=== PATIENT | female | born 1980 | race Caucasian/White ===

== ENCOUNTER 2017-01-09 05:19 | Day surgery (SDC) | payer BC ==
[~2017-01-09 05:19] MED LIST: CALCIUM 600 +1 EACH PO; CYMBALTA30 M1 PO; CYMBALTA60 M1 PO; DEXILANT60 MG PO; FIORICET TABLET1 TAB; H; IRON325 M3 PO; MULTIVITAMIN1 TAB PO; ORTHO TRI-7 DAYS X; PHENERGAN25 MG/SUPP; PRENATAL1 TAB; PROVENTIL HFA6.7 G1 INH; SINGULAIR10 M1 PO; SYMBICORT 16010.2 GM IH; SYMBICORT 80/10.2 GM; TRI-SPRINTEC1 TAB PO; XANAX1 M1 PO; XYZAL5 MG PO; ZYRTEC10 M7 PO
[2017-01-09] MEDS ORDERED: TOPAMAX100 M2 PO (06:05)
[2017-01-10] MEDS ORDERED: PERCOCET 5-3251 EACH PO (00:34)
== END 2017-01-10 09:40 ==
LOC: SHSA 05:19 → ORW 07:38 → PACU 08:20 → OBGF 09:25
PROC: 0UT94ZZ Resection of Uterus, Percutaneous Endoscopic Approach (ICD-10-PCS; principal; 2017-01-09)
PROC: 0UTC4ZZ Resection of Cervix, Percutaneous Endoscopic Approach (ICD-10-PCS; 2017-01-09)
PROC: 0UT14ZZ Resection of Left Ovary, Percutaneous Endoscopic Approach (ICD-10-PCS; 2017-01-09)
PROC: 0UT74ZZ Resection of Bilateral Fallopian Tubes, Percutaneous Endoscopic Approach (ICD-10-PCS; 2017-01-09)
PROC: 8E0W4CZ Robotic Assisted Procedure of Trunk Region, Percutaneous Endoscopic Approach (ICD-10-PCS; 2017-01-09)
DX: N80.3 Endometriosis of pelvic peritoneum (principal); G89.29 Other chronic pain; N83.8 Other noninflammatory disorders of ovary, fallopian tube and broad ligament; J45.909 Unspecified asthma, uncomplicated; Z79.899 Other long term (current) drug therapy; Z90.49 Acquired absence of other specified parts of digestive tract; Z98.890 Other specified postprocedural states
CPT/HCPCS: J0690; J2175; J3010; J7030

== ENCOUNTER 2017-02-05 07:30 | Emergency (ER) | payer BC ==
[~2017-02-05 07:30] MED LIST changes: +PERCOCET 5-3251 EACH PO; +TOPAMAX100 M2 PO
[2017-02-05 08:11] LABS: EOSINOPHIL ABSOLUTE COUNT 0.1 tho/cmm (0.0-0.7); HCT-HEMATOCRIT 38.4 % (34.0-49.0); HGB-HEMOGLOBIN 12.7 gm/dl (12.0-15.5); IMMATURE GRANULOCYTES ABSOLUTE 0.02 tho/cmm (0-0.03); IMMATURE GRANULOCYTES PERCENT 0.3 % (0-0.3); LYMPH % 30.3 % (20-45); MCH (MEAN CORPUSCULAR HGB) 30.8 pg (28.0-32.0); MCHC MEAN CORPUSCULAR HGB CONC 33.1 % (32.0-36.0); MEAN PLATELET VOLUME 10.1 cmc (9.4-12.4); MONO % 7.6 % (0-12); MONOCYTE ABSOLUTE COUNT 0.5 tho/cmm (0.0-1.2); NEUTROPHILS % 59.8 % (40-80); PLATELET COUNT 247 tho/cmm (150-450); RED BLOOD COUNT 4.13 mil/cmm (4.00-5.20); RED CELL DISTRIBUTION WIDTH 12.9 % (12.4-16.4); WHITE BLOOD COUNT 6.6 tho/cmm (4.0-10.0)
[2017-02-05 08:14] LABS: PROTHROMBIN TIME 11.2 SECONDS (9.0-13.6)
[2017-02-05 08:22] LABS: ANION GAP 11 mmol/L (0-20); BLOOD UREA NITROGEN 10 mg/dl (6-24); CALCIUM 8.5 mg/dl (8.5-10.5); CARBON DIOXIDE-VENOUS 23 mmol/L (22-32); CHLORIDE 111 mmol/l (96-110); CREATININE 0.77 mg/dl (0.50-1.10); GLUCOSE 72 mg/dL (70-110); POTASSIUM 3.3 mmol/L (3.7-5.1); SODIUM 142 mmol/L (135-145); eGFR VALUE FOR BLACK >90 mL/Min
[2017-02-05] MEDS ORDERED: ZOMIG5 M2 (08:43)
== END 2017-02-05 10:35 ==
LOC: EDMED 07:30
PROVIDERS: Emergency Medicine
DX: N93.9 Abnormal uterine and vaginal bleeding, unspecified (principal); Z87.442 Personal history of urinary calculi; Z90.49 Acquired absence of other specified parts of digestive tract; Z90.710 Acquired absence of both cervix and uterus
CPT/HCPCS: J7030